=== PATIENT | male | born 1950 | race African-American/Black ===

== ENCOUNTER 2022-10-15 10:26 | Emergency (ER) | payer OTHER, MEDICAID ==
[~2022-10-15] VITALS: Ht 185.4 cm; Wt 90.7 kg
[2022-10-15 10:35] VITALS: BP_SYST 143
--- NOTE | 2022-10-15 10:35 | NUR ---
Patient BIB self from home. Chief Complaint: Left knee swelling. Patient requesting drainage. Patient a&ox4 and stable.
--- NOTE | 2022-10-15 10:42 | NUR ---
PT TRIAGED AND PLACED IN ROOM 7. PT BIBS FOR C/O LEFT KNEE PAIN AND SWELLING X3 WKS. PT ENDORSED TO [place].
--- NOTE | 2022-10-15 10:45 | NUR ---
ER Dr. Velasquez at bedside examining patient.
[2022-10-15] MEDS ORDERED: DIPHTH,PERTUSS(ACELL),TET VAC 0.5 ML VIAL (Tdap) I.M. ONE (11:00)
[2022-10-15] MEDS ORDERED: LIDOCAINE 1% 10 MG/ML, 20 ML MDV INJ ONE (11:00)
[2022-10-15] MEDS ORDERED: BACITRACIN 1 GM OINT TP ONE (11:00)
--- NOTE | 2022-10-15 11:00 | NUR ---
Dr. Velasquez at bedside performing synovial fluid collection. Dr. Velasquez given the Lidocaine to administer per his order.
[2022-10-15 11:14] LABS: BASOPHILS # (AUTO) 0.1 K/uL (0.0-0.2); EOSINOPHILS # (AUTO) 0.7 K/uL (0.0-0.4); EOSINOPHILS % (AUTO) 9.2 % (0.0-4.0); HEMOGLOBIN 14.1 g/dL (14.0-18.0); LYMPHOCYTES # (AUTO) 1.3 K/uL (1.0-5.5); LYMPHOCYTES % (AUTO) 17.6 % (20.5-51.5); MEAN CORPUSCULAR HEMOGLOBIN 26 pg (27-31); MEAN CORPUSCULAR HGB CONC 33 % (32-36); MEAN CORPUSCULAR VOLUME 80 fL (79.0-98.0); MONOCYTES # (AUTO) 0.6 K/uL (0.0-1.0); MONOCYTES % (AUTO) 7.8 % (1.7-9.3); NEUTROPHILS # (AUTO) 4.8 K/uL (1.8-7.7); NEUTROPHILS % (AUTO) 64.4 % (40.0-70.0); PLATELET COUNT (AUTO) 168 K/uL (130-430); RED BLOOD CELL COUNT(AUTO) 5.37 MIL/uL (4.2-6.2); RED CELL DISTRIBUTION WIDTH 14.9 % (9.0-15.0); WHITE BLOOD COUNT (AUTO) 7.4 K/uL (4.8-10.8)
--- NOTE | 2022-10-15 11:25 | NUR ---
Tdap 0.5ml given IM per Dr. Velasquez's order. Patient given VIS and agreed to vaccination prior to administration. Patient denies allergies, and tolerated injection well. Bacitracin applied to injection site per order by Dr. Velasquez and pressure dressing applied to left knee per Dr. Velasquez's verbal order.
[2022-10-15 11:29] LABS: ANION GAP 4 (5-15); CALCIUM 8.4 mg/dL (8.4-11.0); CHLORIDE 104 mmol/L (98-107); CREATININE 1.15 mg/dL (0.55-1.30); GLUCOSE 80 mg/dL (70-99); UREA NITROGEN, BLOOD 17 mg/dL (8-21)
[2022-10-15 11:34] LABS: ALANINE AMINOTRANSFERASE 15 U/L (12-78); ALBUMIN 3.5 g/dL (3.4-4.8); ASPARTATE AMINOTRANSFERASE 13 U/L (10-37); TOTAL BILIRUBIN 1.4 mg/dL (0.0-1.0)
[2022-10-15] MEDS ORDERED: DIPH-TET Vacc 0.5 ML VIAL I.M. ONE (11:40)
[2022-10-15 11:45] LABS: C-REACTIVE PROTEIN QUANT < 0.2 mg/dL (0-0.5)
--- NOTE | 2022-10-15 11:45 | NUR ---
Synovial fluid taken to lab
[2022-10-15] MEDS ORDERED: TRAM50TA2 PO (12:04)
[2022-10-15] MEDS ORDERED: IBUP-1971 PO (12:04)
[2022-10-15 12:42] VITALS: BP_SYST 141
--- NOTE | 2022-10-15 12:42 | NUR ---
Patient given written and verbal discharge instructions and verbalizes understanding. ER MD Velasquez discussed with patient the results and treatment provided. Patient in stable condition. ID arm band removed. Rx of Ibuprofen and Tramadol sent to pharmacy on file. Patient educated on pain management and to follow up with PMD. Opportunity for questions provided and answered. Medication side effect fact sheet provided. Patient discharged walking, a&ox4 and stable.
[2022-10-15 13:50] LABS: APPEARANCE,SPUN,BODY FLUID CLEAR (CLEAR); BF APPEARANCE UNSPUN SLIGHTLY HAZY (CLEAR); SOURCE/TYPE ,BODY FLUID SYNOVIAL
[2022-10-15 13:51] LABS: BODY FLUID COLOR YELLOW (LT YELLOW); BODY FLUID TOTAL VOLUME 70 mL; LYMPHOCYTES, BODY FLUID 5 %; MONOCYTES,BODY FLUID 15 %; NEUTROPHIL, BODY FLUID 80 %; RBC, BODY FLUID 93 /uL; WBC, BODY FLUID 110 /uL
== END 2022-10-15 12:45 | disposition home or self-care (01) ==
LOC: SED 10:26
DX: M25.462 Effusion, left knee (principal); M25.562 Pain in left knee; Z79.899 Other long term (current) drug therapy
CPT/HCPCS: 36415; 80053; 82947; 83605; 84157; 85025; 86140; 87070-TC; 89051-TC; 89060-TC; 90714; 90715; 99283